=== PATIENT | male | born 1945 | race Caucasian/White ===

== ENCOUNTER 2017-05-16 09:55 | Day surgery (SDC) | payer MEDICARE ==
[~2017-05-16 09:55] MED LIST: Acetaminophen TAB* 325 MG PO PRN; Buffered Lidocaine 0.9% SYRIN* 5 ML/SYR SYRINGE INTRADERM ONE; Cyclopentolate 1% OPTH.SOL* 2 ML BTL ONE; Ketorolac 0.5% OPHTH (NF) 0.5 % 5 ML BTL ONE; Lidocaine 1% MPF* 2 ML VIAL ONE; Neomycin/Polymy/Dex OPHTH.OIN* 3.5 GM ONE; Phenylephrine 2.5% OPTH.SOL* 2 ML BTL ONE; Povidone Iodine 5% OPTH* 30 ML BTL ONE; Tetracaine 0.5% OPTH.SOL 4 ML* 1 DROP BTL ONE; Tropicamide 1% OPTH.SOL* BTL ONE; acetaZOLAMIDE TAB* 250 MG ONE
[2017-05-16] MEDS ORDERED: Midazolam* 1 MG/ML 2 ML VIAL (2 MG) ONE (11:30)
[2017-05-16 12:19] VITALS: BP 155/70
--- NOTE | 2017-05-17 01:59 | OP ---
DATE OF OPERATION: 05/16/17 - [facility] DATE OF : 45 SURGEON: Jv Kahn MD ANESTHESIA: Monitored anesthesia care. PRE-OP DIAGNOSIS: Cataract, left eye. POST-OP DIAGNOSIS: Cataract, left eye, with floppy iris syndrome. OPERATIVE PROCEDURE: Extracapsular cataract extraction of the left eye with intraocular lens implant. IMPLANTS: SN60WF 23.0 diopter lens to the left eye. COMPLICATIONS: None. DESCRIPTION OF PROCEDURE: The patient was given phenylephrine 2.5% and cyclopentolate 1% eye drops to the operative eye in the preoperative area. The patient was brought to the operating room where a time-out was taken to identify the correct patient, site, and side of surgery. The patient's left eye was prepped and draped in the usual sterile fashion with 5% Betadine. A second time-out was taken to verify the correct patient, site, and side of surgery, and correct lens selection. A lid speculum was placed to the left eye. A 1-mm paracentesis blade was used to make a clear corneal incision in the inferotemporal position. Preservative-free 1% lidocaine was injected into the anterior chamber. DisCoVisc was then injected into the anterior chamber. A 2.75-mm keratome blade was used to make a triplanar incision at the superotemporal position. A Malyugin ring was then inserted due to floppy iris syndrome. A cystotome initiated a capsulorrhexis, which was completed with Utrata forceps in a continuous and curvilinear manner. Hydrodissection of the lens was performed with BSS on a cannula. The lens could be spun in the capsular bag. The phacoemulsification handpiece was used with a divide and conquer technique to remove the nucleus in its entirety with 16.41 CDE. The I/ A handpiece then removed the residual cortical lens material. DisCoVisc was injected to inflate the capsular bag. The planned SN60WF 23.0 diopter lens was injected into the capsular bag. The Malyugin ring was then removed from the anterior chamber with a [place] technique. The residual DisCoVisc was removed from the eye with the I/A handpiece. The corneal incisions were hydrated and no leaks occurred at physiologic pressure around 20 mmHg per palpation. The lid speculum was removed and drapes removed. Maxitrol ointment was placed to the surface of the operative eye. An adhesive patch and shield was then placed on the operative eye. The patient was taken to the postoperative area in stable condition. [id number]/[facility] #: [id number] MTDD
== END 2017-05-16 12:29 | disposition home or self-care (01) ==
LOC: OREAST 09:55
PROVIDERS: ATTEND Student in an Organized Health Care Education/Training Program
DX: H25.812 Combined forms of age-related cataract, left eye (principal); H21.81 Floppy iris syndrome; M54.9 Dorsalgia, unspecified; M79.606 Pain in leg, unspecified; Z79.891 Long term (current) use of opiate analgesic; N40.0 Benign prostatic hyperplasia without lower urinary tract symptoms; K27.9 Peptic ulcer, site unspecified, unspecified as acute or chronic, without hemorrhage or perforation; K21.9 Gastro-esophageal reflux disease without esophagitis
CPT/HCPCS: A9270-GY; J2250; V2632

== ENCOUNTER 2017-06-06 09:17 | Day surgery (SDC) | payer MEDICARE ==
[~2017-06-06 09:17] MED LIST changes: -Acetaminophen TAB* 325 MG PO PRN; -Cyclopentolate 1% OPTH.SOL* 2 ML BTL ONE; +Dexamethasone IV* 4 MG/ML 1 ML (4 MG) IV SLOW PU ONE; +Famotidine IV* 10 MG/ML 2 ML (20 mg) IV ONE; -Ketorolac 0.5% OPHTH (NF) 0.5 % 5 ML BTL ONE; -Lidocaine 1% MPF* 2 ML VIAL ONE; -Neomycin/Polymy/Dex OPHTH.OIN* 3.5 GM ONE; -Phenylephrine 2.5% OPTH.SOL* 2 ML BTL ONE; -Povidone Iodine 5% OPTH* 30 ML BTL ONE; -Tetracaine 0.5% OPTH.SOL 4 ML* 1 DROP BTL ONE; -Tropicamide 1% OPTH.SOL* BTL ONE; -acetaZOLAMIDE TAB* 250 MG ONE
[2017-06-06] MEDS ORDERED: Famotidine IV* 10 MG/ML 2 ML (20 mg) ONE (09:40)
[2017-06-06] MEDS ORDERED: Dexamethasone IV* 4 MG/ML 1 ML (4 MG) ONE (09:40)
[2017-06-06] MEDS ORDERED: ceFAZolin 2 GM in 100 MLS NS (*) BAG IVPB ONE (09:40)
[2017-06-06] MEDS ORDERED: Bupivacaine 0.5% SDV PF* 10-30ML VIAL ONE (10:27)
[2017-06-06] MEDS ORDERED: Propofol* 10 MG/ML 20 ML BTL IV PUSH ONE (10:49)
[2017-06-06] MEDS ORDERED: EPHEDrine (Pressors)* 50 MG/ML VIAL ONE (10:49)
[2017-06-06] MEDS ORDERED: Ondansetron INJ* 2 MG/ML VIAL ONE (11:00)
[2017-06-06] MEDS ORDERED: Ketorolac INJ* 30 MG/ML 1 ML VIAL ONE (11:00)
[2017-06-06] MEDS ORDERED: Naloxone* 0.4 MG/ML 1 ML VIAL IV PRN (11:04)
[2017-06-06] MEDS ORDERED: DiMENhydriNATE IV* 50 MG/ML VIAL IV PUSH PRN (11:04)
[2017-06-06] MEDS ORDERED: fentaNYL* 50 MCG/ML 2 ML VIAL (100 MCG VIAL) IV PRN (11:04)
[2017-06-06 12:31] VITALS: BP 157/88
--- NOTE | 2017-06-07 14:42 | OP ---
DATE OF OPERATION: 06/06/17 - [facility] DATE OF : 45 SURGEON: David Henriquez MD TECHNICAL SERVICE REP: Merly Mcguire PA-C PRE-OP DIAGNOSIS: Chronic incisional neuroma in situ, right SPN nerve and sural nerve. POST-OP DIAGNOSIS: Chronic incisional neuroma in situ, right SPN nerve and sural nerve. OPERATIVE PROCEDURE: Excision and burial, right SPN nerve and sural nerve. DESCRIPTION OF PROCEDURE: The patient was taken to the operating room where we extended the lateral incision proximally to the mid calf. In the posterior soft tissue, we located the sural nerve at this level. Distally, it was trapped and scarred, but at this level appeared to be in normal configuration. We transected it and placed a 3-0 Ethibond suture ligature at the end of the nerve. Similarly, the SPN nerve was isolated in the anterior flap and disappearing in its lateral branch into the scar tissue. This more lateral branch was transected and suture ligature applied of 3-0 Ethibond, so this branch of the SPN nerve was then buried anterior to posterior and the interosseous membrane brought through on Buster needles. The sural nerve was brought posterior to anterior through the same interspace using Buster needles. Both sutures were then tied over the fascia, burying both nerves in the interosseous space. We irrigated thoroughly, closing with 2-0 Vicryl and dominic for the skin and a compression dressing applied. [id number]/[facility] #: [id number] [facility]
== END 2017-06-06 12:32 | disposition home or self-care (01) ==
LOC: EEVIPCON 09:17 → OR 09:17
PROVIDERS: ATTEND Orthopaedic Surgery
DX: G57.81 Other specified mononeuropathies of right lower limb (principal); Z87.891 Personal history of nicotine dependence; Z98.890 Other specified postprocedural states; D64.9 Anemia, unspecified; Z68.32 Body mass index [BMI] 32.0-32.9, adult
CPT/HCPCS: J1100; J1885; J2405; J2704